=== PATIENT | male | born 1960 | race African-American/Black ===

== ENCOUNTER 2017-07-05 04:58 | Inpatient (IN) | payer OTHER ==
[2017-07-05] VITALS (14 sets, daily range): BP systolic 118–169; BP diastolic 81–98
[~2017-07-05] VITALS: Ht 182.9 cm; Wt 81.6 kg
[2017-07-05] MEDS ORDERED: NORCO 10-325 T1 EACH ORAL (05:56)
[2017-07-05] MEDS ORDERED: Thrombin 5000 units TOPIC ONE (06:21)
[2017-07-05] MEDS ORDERED: Bacitracin 50000 Units Vial ONE ×2 (06:22→11:08)
[2017-07-05] MEDS ORDERED: Vancomycin 1gm inj IVPB ONE (06:22)
[2017-07-05] MEDS ORDERED: Bupivacaine w/Epi 0.75% 30ml Vial INJ ONE (06:22)
[2017-07-05] MEDS ORDERED: Gelfoam Absorbable 1gm powder pkt TOPIC ONE (06:22)
[2017-07-05] MEDS ORDERED: Thrombin 5000 units spray kit TOPIC ONE (06:22)
[2017-07-05] MEDS ORDERED: LR 1000ml 1,000 ML IVLG SCH (06:23)
[2017-07-05] MEDS ORDERED: fentaNYL 100 mcg/2 mL IV PRN (06:30)
[2017-07-05] MEDS ORDERED: DiphenhydrAMINE 50mg/ml Inj IVP PRN ×2 (06:30→11:00)
[2017-07-05] MEDS ORDERED: Atropine Inj 1mg/10ml Syr IV PRN (06:30)
[2017-07-05] MEDS ORDERED: Metoclopramide 10mg/2ml Inj IVP PRN (06:30)
[2017-07-05] MEDS ORDERED: Hydromorphone 0.5mg/0.5ml inj IVP PRN (06:30)
[2017-07-05] MEDS ORDERED: Midazolam 2mg/2ml Inj IVP PRN (06:30)
[2017-07-05] MEDS ORDERED: oxyCODONE HCL/Acetaminophen 5/325mg ORAL PRN (06:30)
[2017-07-05] MEDS ORDERED: Ketorolac 30mg Inj IV PRN (06:30)
[2017-07-05] MEDS ORDERED: Norco 7.5mg/325mg tab ORAL PRN (06:30)
[2017-07-05] MEDS ORDERED: Norco 5mg/325mg tab ORAL PRN (06:30)
[2017-07-05] MEDS ORDERED: Ketorolac 60mg Inj IV PRN (06:30)
[2017-07-05] MEDS ORDERED: LORazepam Inj 2mg/ml 1ml IV PRN (06:30)
[2017-07-05] MEDS ORDERED: LR 1000ml ONE (07:00)
[2017-07-05] MEDS ORDERED: Dexamethasone 4mg/ml vial ONE (07:00)
[2017-07-05] MEDS ORDERED: Metoclopramide 10mg/2ml Inj ONE (07:00)
[2017-07-05] MEDS ORDERED: fentaNYL 100 mcg/2 mL IV ONE (07:00)
[2017-07-05] MEDS ORDERED: Lidocaine 1% MPF 10mg/ml 5ml ONE (07:00)
[2017-07-05] MEDS ORDERED: Sodium Chloride 10ml vial INJ ONE (07:00)
[2017-07-05] MEDS ORDERED: Sterile Water Irrig 1000ml IRRIG ONE (07:00)
[2017-07-05] MEDS ORDERED: Zemuron 50mg/5ml Inj IV ONE (07:00)
[2017-07-05] MEDS ORDERED: Glycopyrrolate 0.2mg/ml 1ml Vial ONE (07:00)
[2017-07-05] MEDS ORDERED: Lidocaine 1% Plain 30 ml INJ ONE (07:00)
[2017-07-05] MEDS ORDERED: Propofol 1,000mg/ 100ml btl IV ONE (07:00)
[2017-07-05] MEDS ORDERED: NS Irrig 1000ml ONE (07:00)
[2017-07-05] MEDS ORDERED: Neostigmine 1mg/ml 10ml Inj ONE (07:00)
--- NOTE | 2017-07-05 07:00 | Anethesia Preoperative Eval ---
Anesthesia Pre-op PMH/ROS General Date of Evaluation: Jul 05, 2017 Time of Evaluation: 07:01 Anesthesiologist: Kitty ASA Score: ASA 2 Mallampati Score Class I : Soft palate, uvula, fauces, pillars visible Class II: Soft palate, uvula, fauces visible Class III: Soft palate, base of uvula visible Class IV: Only hard plate visible Mallampati Classification: Class II Surgeon: Mark Diagnosis: Back Pain Surgical Procedure: ALIF L3-4, L4-5, L5-S1 Anesthesia History: none Family History: no anesthesia problems Allergies: Coded Allergies: No Known Allergies (Unverified , 07/05/17) Medications: see eMAR Past Medical History Cardiovascular: Reports: HTN PSxH Narrative: Kobi Shoulder SX, Cervical SX, L Knee SX Anesthesia Pre-op Phys. Exam Physician Exam Last Vital Signs Date Time Temp Pulse Resp B/P (MAP) Pulse Ox O2 Delivery O2 Flow Rate FiO2 07/05/17 06:16 98.0 51 18 118/85 100 Room Air Constitutional: NAD Neurologic: CN 2-12 intact Cardiovascular: RRR Respiratory: CTA Gastrointestinal: S/NT/ND Airway Exam Mallampati Score: Class II MO: full ROM: limited Teeth: missing, intact Anesthesia Pre-op A/P Risk Assessment & Plan Assessment: ASA 2 Plan: GA, BIS, Glidescope Status Change Before Surgery: No Pre-Antibiotics Dru Grams Ancef IV Given Within 1 Hr of Incision: Yes Time Given: 07:26 Alvarez Tang MD Jul 05, 2017 07:00
--- NOTE | 2017-07-05 07:02 | Immediate Post-Op Evaluation ---
Immediate Post-Op Evalulation Immediate Post-Op Evalulation Procedure: ALIF Date of Evaluation: Jul 05, 2017 Time of Evaluation: 10:53 IV Fluids: 900 LR Blood Products: 0 Estimated Blood Loss: 90 Urinary Output: 300 Blood Pressure Systolic: 168 Blood Pressure Diastolic: 98 Pulse Rate: 82 Respiratory Rate: 16 O2 Sat by Pulse Oximetry: 98 Temperature (Fahrenheit): 98 Pain Score (1-10): 3 Nausea: No Vomiting: No Complications 0 Patient Status: awake, reacts, patent, extubated, none Hydration Status: adequate Dru Grams Ancef IV Given Within 1 Hr of Incision: Yes Time Given: 07:26 Alvarez Tang MD Jul 05, 2017 07:02
--- NOTE | 2017-07-05 07:16 | Pre-Procedure Note/Attestation ---
Pre-Procedure Note/Attestation Complete Prior to Procedure Planned Procedure: not applicable Procedure Narrative: For Anterior decompression and stabelization L3-4, L4-5 and L5/S1 Indications for Procedure Pre-Operative Diagnosis: Instability and disc herniation L3-4, L4-5 & L5/S1 Attestation I attest that I discussed the nature of the procedure; its benefits; risks and complications; and alternatives (and the risks and benefits of such alternatives ), prior to the procedure, with the patient (or the patient's legal industrial sales representative). I attest that, if there was a reasonable possibility of needing a blood transfusion, the patient (or the patient's legal industrial sales representative) was given the [place] Department [facility] Services standardized written summary, pursuant to the Sundar Jose Martin Blood Safety Act ([place] Health and Safety Code # 1645, as amended). I attest that I re-evaluated the patient just prior to the surgery and that there has been no change in the patient's H&P, except as documented below: DANETTE ACOSTA Jul 05, 2017 07:16
--- NOTE | 2017-07-05 07:16 | Pre-Procedure Note/Attestation ---
Pre-Procedure Note/Attestation Complete Prior to Procedure Planned Procedure: not applicable Procedure Narrative: For Anterior decompression and stabelization L3-4, L4-5 and L5/S1 Indications for Procedure Pre-Operative Diagnosis: Instability and disc herniation L3-4, L4-5 & L5/S1 Attestation I attest that I discussed the nature of the procedure; its benefits; risks and complications; and alternatives (and the risks and benefits of such alternatives ), prior to the procedure, with the patient (or the patient's legal pharmaceutical sales representative). I attest that, if there was a reasonable possibility of needing a blood transfusion, the patient (or the patient's legal pharmaceutical sales representative) was given the [place] [facility] Services standardized written summary, pursuant to the Sundar Jose Martin Blood Safety Act ([place] Health and Safety Code # 1645, as amended). I attest that I re-evaluated the patient just prior to the surgery and that there has been no change in the patient's H&P, except as documented below: DANETTE ACOSTA Jul 05, 2017 07:16
--- NOTE | 2017-07-05 07:16 | Pre-Procedure Note/Attestation ---
Pre-Procedure Note/Attestation Complete Prior to Procedure Planned Procedure: not applicable Procedure Narrative: For Anterior decompression and stabelization L3-4, L4-5 and L5/S1 Indications for Procedure Pre-Operative Diagnosis: Instability and disc herniation L3-4, L4-5 & L5/S1 Attestation I attest that I discussed the nature of the procedure; its benefits; risks and complications; and alternatives (and the risks and benefits of such alternatives ), prior to the procedure, with the patient (or the patient's legal accounts payable representative). I attest that, if there was a reasonable possibility of needing a blood transfusion, the patient (or the patient's legal accounts payable representative) was given the [place] Department [facility] Services standardized written summary, pursuant to the Sundar Jose Martin Blood Safety Act ([place] Health and Safety Code # 1645, as amended). I attest that I re-evaluated the patient just prior to the surgery and that there has been no change in the patient's H&P, except as documented below: DANETTE ACOSTA Jul 05, 2017 07:16
[2017-07-05] MEDS ORDERED: Acetaminophen (Non formulary) 100 ML IV ONE (07:30)
[2017-07-05] MEDS ORDERED: Heparin 5000 units/ml inj ONE (07:52)
[2017-07-05] MEDS ORDERED: Ropivacaine 5mg/ml Vial 30ml INJ ONE (10:14)
--- NOTE | 2017-07-05 10:43 | Operative Note - PDOC ---
Operative Note Operative Note Chief Complaint: Low Back Pain and leg weakness Pre-op Diagnosis: Instability and disc herniation L3-4, L4-5 & L5/S1 Procedure: Anterior Lumbar Decompression and stabelization with InFis devices Operative Findings: consistent w/pre-op dx studies Surgeon: Mark Fretted Instruments Inspector: DANIEL Doherty Additional Surgeons: Scott - Vascular Access Anesthesiologist: Vito Vines Anesthesia: general Specimen: yes Complications: none Condition: stable Estimated Blood Loss: volume Implant(s) used?: Yes - Jinny InFix (X3), DANETTE Reza Jul 05, 2017 10:43
[2017-07-05] MEDS ORDERED: Naloxone 0.4mg/ml Inj IVP PRN (11:00)
[2017-07-05] MEDS ORDERED: Rate Change PCA 1 Each MISC PRN (11:00)
[2017-07-05] MEDS ORDERED: LORazepam 1mg tab ORAL PRN (11:00)
[2017-07-05] MEDS: PCA HYDROmorphone 1mg/ml 30 ML IV PRN (11:28)
--- NOTE | 2017-07-05 12:27 | Diagnostic Imaging Report ---
Indication: PAIN intraoperative, pain right hip and right leg Technique: Intraoperative images Comparison: None Findings: Localizer images demonstrate surgical tool projected anterior to what is presumably the L5-S1 disc. Subsequent images document placement of disc prostheses at L3-4, L4-5, and L5-S1. Impression: Intraoperative imaging, as described
[2017-07-05] MEDS ORDERED: Acetaminophen 650 MG SUPP RECTAL PRN (13:30)
[2017-07-05] MEDS ORDERED: PCA Education Pamphlet MISC ONE (14:30)
[2017-07-05] MEDS: ceFAZolin sod 1 GM in D5W 55 ML IV SCH ×2 (14:43→23:30)
--- NOTE | 2017-07-05 18:00 | Operative Note - Dictated ---
DATE OF OPERATION: 07/05/2017 FACILITY: [facility]. SURGEON: Billy Flores M.D. CO-SURGEON [address] MAGISTRATE FOR APPROACH: Dr. Scott for vascular mobilization. [facility]USTRI[address] [facility] MAGISTRATE: MIKE Jane. ANESTHESIOLOGIST: Dr. Tang. General endotracheal with arterial blood pressure monitoring. 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 The patient had significant stenosis at the L4-L5 level with moderate compression on the sac and exiting nerve roots and notable 5 to 6 mm bulge with annular tear and hypertrophic facets. There was also a significant disk bulge centrally at L3-L4 with disk degeneration at L5-S1. The patient had a severely collapse level with only about 3 mm of disk space height, remaining a large circumferential osteophytes causing obstruction in the canal in both the right and left foramen. 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 The patient had significant stenosis at the L4-L5 level with moderate compression on the sac and exiting nerve roots and notable 5 to 6 mm bulge with annular tear and hypertrophic facets. There was also a significant disk bulge centrally at L3-L4 with disk degeneration at L5-S1. The patient had a severely collapse level with only about 3 mm of disk space height, remaining a large circumferential osteophytes causing obstruction in the canal in both the right and left foramen. OPERATIVE PROCEDURE: Left pararectus retroperitoneal approach to the anterior lumbar spine between L3 and L5. The vessels both the vena cava and the aorta were mobilized and retracted by Dr. Scott in two stages to permit anterior access to the disk anulus at L5-S1 and at L3-L4 and L4-L5. DESCRIPTION OF PROCEDURE: The patient was prepped and draped supine after induction of satisfactory general anesthesia, a left pararectus incision was made by Dr. Scott. The lumbosacral space was initially approached and retractors were inserted. The vena cava and aorta were cleared below the bifurcation. Middle sacral was cleared and the front of the disk space at L5-S1 was identified. Spine needle was placed and image intensifier was used to confirm placement of the needle. The anterior annulotomy was then done with a 10 blade and the cartilaginous endplate and soft disk substance was then sequentially removed from front to back using Kerrison's, curettes, and pituitaries both straight and angle graduated from larger to smaller. A removable lordotic distraction plug was utilized from side to side beginning at 8 mm and progressing to 12 to open the anterior aspect of the disk and allow progressively more dissection to the posterior canal, posterior osteophytes and the right and left foramen. Osteophytes were removed from the foramina. A wide foraminotomy was accomplished. Also osteophytes were removed from the posterior aspect of the body of L5 and S1 facing the canal. Height of the disk was reconstituted to 8 mm with good tension on the lateral anulus lateral muscle and ligament stabilizers. An 8 mm infix cage was inserted with 3+ 3 degrees of lordosis in each endplate on a large platform to create normal height of the lumbosacral disk normal lordosis and to clear the canal and the bilateral right and left foramina. In surgery x-rays revealed that the cage was well positioned centrally and that there was good disk height and lordosis. The dissection by Dr. Scott was then carried more proximally and the L3-L4 and L4-L5 disks were cleared centrally by retracting the aorta and vena cava to the side. The center of the disk were marked and then an anterior annulotomy was done first at L4-L5 and then at L3-L4. A 10-blade was used, the cartilaginous endplate and soft disk substance was then sequentially removed from front to back using detachable lordotic distractors. The dissection was carried to the back of the disk with the PLL and posterior disk remnant was completely removed. A bilateral foraminotomy was accomplished, both right and left and the remnants of the disk and lateral stabilizers were stretched to 12 mm with template reproducing an increase in height stabilizing the L4-L5 level and opening the foramen posteriorly. A 12 mm implant was chosen with a large foot plate. It was tapped into place, checked, and side struts were then inserted and cold welded. The L3-L4 level was then done similarly using anterior annulotomy progressing from front to back with removal of the cartilaginous endplate, nuclear disk, then clearance to the PLL and posterior disk anulus and also a wide foraminotomy at the right and left foramina L3-L4. The space at L3-L4 was not as wide as at L4-L5 and therefore a medium foot plate was chosen, it was centered between the pedicles and templated out to 12 mm in height. A 3+3 degrees of lordosis was added at the L3-L4 level and two endplates were tapped into place. Then the side supports were inserted and the position was checked. Cold welding was done and the space between endplates at L3-L4 and L4-L5 was filled with autogenous bone that had been harvested during the procedure as well as bone morphogenic protein. There was no significant bleeding. Bleeding was less than 100 mL. The wound was closed carefully in layers including the anterior and posterior rectus sheath. The subcutaneous and skin final x-rays revealed that all 3 levels the cage was well centered between the pedicles on AP had good social insurance adviser on the endplate, good reconstitution of disk height. No lordosis was noted on the postoperative films. Pulse oximetry was maintained throughout the case. The patient was placed in a bulky compression dressing, returned to recovery room in good condition. Billy Flores M.D. DR: MEHRNA JOB#: [id number] CC:
--- NOTE | 2017-07-05 18:00 | Operative Note - Dictated ---
DATE OF OPERATION: 07/05/2017 FACILITY: [facility]. SURGEON: Billy Flores M.D. CO-SURGEON FARE COLLECTOR FOR APPROACH: Dr. Scott for vascular mobilization. FARE COLLECTOR: MIKE Jaen. ANESTHESIOLOGIST: Dr. Tang. General endotracheal with arterial blood pressure monitoring. 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 The patient had significant stenosis at the L4-L5 level with moderate compression on the sac and exiting nerve roots and notable 5 to 6 mm bulge with annular tear and hypertrophic facets. There was also a significant disk bulge centrally at L3-L4 with disk degeneration at L5-S1. The patient had a severely collapse level with only about 3 mm of disk space height, remaining a large circumferential osteophytes causing obstruction in the canal in both the right and left foramen. 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 The patient had significant stenosis at the L4-L5 level with moderate compression on the sac and exiting nerve roots and notable 5 to 6 mm bulge with annular tear and hypertrophic facets. There was also a significant disk bulge centrally at L3-L4 with disk degeneration at L5-S1. The patient had a severely collapse level with only about 3 mm of disk space height, remaining a large circumferential osteophytes causing obstruction in the canal in both the right and left foramen. OPERATIVE PROCEDURE: Left pararectus retroperitoneal approach to the anterior lumbar spine between L3 and L5. The vessels both the vena cava and the aorta were mobilized and retracted by Dr. Scott in two stages to permit anterior access to the disk anulus at L5-S1 and at L3-L4 and L4-L5. DESCRIPTION OF PROCEDURE: The patient was prepped and draped supine after induction of satisfactory general anesthesia, a left pararectus incision was made by Dr. Scott. The lumbosacral space was initially approached and retractors were inserted. The vena cava and aorta were cleared below the bifurcation. Middle sacral was cleared and the front of the disk space at L5-S1 was identified. Spine needle was placed and image intensifier was used to confirm placement of the needle. The anterior annulotomy was then done with a 10 blade and the cartilaginous endplate and soft disk substance was then sequentially removed from front to back using Kerrison's, curettes, and pituitaries both straight and angle graduated from larger to smaller. A removable lordotic distraction plug was utilized from side to side beginning at 8 mm and progressing to 12 to open the anterior aspect of the disk and allow progressively more dissection to the posterior canal, posterior osteophytes and the right and left foramen. Osteophytes were removed from the foramina. A wide foraminotomy was accomplished. Also osteophytes were removed from the posterior aspect of the body of L5 and S1 facing the canal. Height of the disk was reconstituted to 8 mm with good tension on the lateral anulus lateral muscle and ligament stabilizers. An 8 mm infix cage was inserted with 3+ 3 degrees of lordosis in each endplate on a large platform to create normal height of the lumbosacral disk normal lordosis and to clear the canal and the bilateral right and left foramina. In surgery x-rays revealed that the cage was well positioned centrally and that there was good disk height and lordosis. The dissection by Dr. Scott was then carried more proximally and the L3-L4 and L4-L5 disks were cleared centrally by retracting the aorta and vena cava to the side. The center of the disk were marked and then an anterior annulotomy was done first at L4-L5 and then at L3-L4. A 10-blade was used, the cartilaginous endplate and soft disk substance was then sequentially removed from front to back using detachable lordotic distractors. The dissection was carried to the back of the disk with the PLL and posterior disk remnant was completely removed. A bilateral foraminotomy was accomplished, both right and left and the remnants of the disk and lateral stabilizers were stretched to 12 mm with template reproducing an increase in height stabilizing the L4-L5 level and opening the foramen posteriorly. A 12 mm implant was chosen with a large foot plate. It was tapped into place, checked, and side struts were then inserted and cold welded. The L3-L4 level was then done similarly using anterior annulotomy progressing from front to back with removal of the cartilaginous endplate, nuclear disk, then clearance to the PLL and posterior disk anulus and also a wide foraminotomy at the right and left foramina L3-L4. The space at L3-L4 was not as wide as at L4-L5 and therefore a medium foot plate was chosen, it was centered between the pedicles and templated out to 12 mm in height. A 3+3 degrees of lordosis was added at the L3-L4 level and two endplates were tapped into place. Then the side supports were inserted and the position was checked. Cold welding was done and the space between endplates at L3-L4 and L4-L5 was filled with autogenous bone that had been harvested during the procedure as well as bone morphogenic protein. There was no significant bleeding. Bleeding was less than 100 mL. The wound was closed carefully in layers including the anterior and posterior rectus sheath. The subcutaneous and skin final x-rays revealed that all 3 levels the cage was well centered between the pedicles on AP had good mill house supervisor on the endplate, good reconstitution of disk height. No lordosis was noted on the postoperative films. Pulse oximetry was maintained throughout the case. The patient was placed in a bulky compression dressing, returned to recovery room in good condition. Billy Flores M.D. DR: MEHRAN JOB#: [id number] CC:
--- NOTE | 2017-07-05 18:15 | Operative Note - Dictated ---
DATE OF OPERATION: 07/05/2017 VASCULAR SURGEON: Mak Scott M.D. SPINE SURGEON: Billy Flores M.D. PREOPERATIVE DIAGNOSIS: Degenerative disc disease. POSTOPERATIVE DIAGNOSIS: Degenerative disc disease. PROCEDURE PERFORMED: 1. Anterior retroperitoneal exposure of L3-4 vertebral interspace. 2. Anterior retroperitoneal exposure of L4-5 vertebral interspace. 3. Anterior retroperitoneal exposure L5-S1 vertebral interspace. INDICATIONS: The patient is a very pleasant gentleman, who was seen in my office prior to surgery and was scheduled for anterior fusion at L3 through S1. He had no prior history of anterior spine surgery. No prior history of deep venous thrombosis or any bleeding complications was described. He has been made aware of the need for a large vertical midline incision, the possibility of vascular injury, possible need for blood transfusion, and deep venous thrombosis were explicitly discussed. He understands these risks and does wish to proceed with the surgery. DESCRIPTION OF FINDINGS: A vertical midline incision was used in extension just to the left side of the umbilicus. A left retroperitoneal approach was used. There was no peritoneal or ureteral violation. There was no vascular injury. Exposure of L5-S1 was obtained below the iliac bifurcation and exposure of L3-4 and L4-5 was obtained above the iliac bifurcation with retraction at the left iliac vessels and aorta towards the patient's right. Upon completion, the peritoneum and ureter were intact. The iliac vessels were intact. There were palpable femoral pedal pulses, and blood loss was less than 100 mL. DESCRIPTION OF PROCEDURE: The patient was taken to the operating room, general anesthesia was used. IV antibiotics were given. The patient's abdomen was prepped and draped. Appropriate time-out of procedures were taken. A vertical midline incision was made infraumbilically with extension just to the left side of the umbilicus. The anterior fascia was incised longitudinally in the midline. A plane identified posterior to the left rectus abdominis developed posterolaterally towards the patient's left. Retroperitoneal space entered below the arcuate line. The peritoneum and ureter were mobilized towards the patient's right exposing the left common iliac artery and vein. Dissection was carried on undersurface of left common iliac vein. The middle sacral artery and vein were ligated with vascular clips and divided, and this allowed us to retract the left iliac vessels superiorly and laterally exposing the anterior surface of the L5 and S1. The Omni retractor was set in place with Monzon blades placed laterally and then fluoroscopy was used to confirm the appropriate level. Instrumentation was performed at L5-S1, dictated separately. Retractor was then repositioned below the iliac bifurcation. Overlying lymphatics were carefully identified. They were ligated with vascular clips and divided and this allowed us to then mobilize the left iliac vessels towards the patient's right. The iliolumbar vein was identified, encircled using a 2-0 silk tie, and triply ligated proximally and distally. The L4 segmental artery and vein as well as large L3 segmental artery and vein were all identified, ligated with vascular clips, and divided and this allowed us to then carefully mobilize the left iliac vessels towards the patient's right and placed the Omni retractor. Monzon blades were placed laterally to ensure exposure of L4-5 and L3-4 simultaneously and the fluoroscopy used to confirm the appropriate level. Instrumentation was performed at L3-4 and L4-5, dictated separately. On completion, the peritoneum and ureter were intact. Iliac vessels were intact. Anterior fascia was then closed using #1 PDS in a running fashion, and the skin and subcutaneous tissue were closed with 3-0 Vicryl and 4-0 Monocryl in a running subcuticular closure technique. ESTIMATED BLOOD LOSS: Less than 100 mL. COMPLICATIONS: None. Mak Scott M.D. DR: KUSHAL JOB#: [id number] CC:
[2017-07-05] MEDS: PCA shift volume MISC SCH (19:00)
[2017-07-06 00:19] VITALS: BP 149/81
[2017-07-06 04:00] VITALS: BP_SYST 144; BP_SYST 151; BP_DIAS 73; BP_DIAS 82
[2017-07-06] MEDS: PCA shift volume MISC SCH ×2 (07:25→19:25)
[2017-07-06 08:00] VITALS: BP 142/74
[2017-07-06] MEDS: ceFAZolin sod 1 GM in D5W 55 ML IV SCH (08:24)
--- NOTE | 2017-07-06 11:27 | 48 Hour Post Anesthesia Eval ---
Post Anesthesia Evaluation Procedure: ALIF Date of Evaluation: Jul 06, 2017 Time of Evaluation: 13:10 Blood Pressure Systolic: 142 0: 74 Pulse Rate: 68 Respiratory Rate: 18 Temperature (Fahrenheit): 98.1 O2 Sat by Pulse Oximetry: 99 Airway: patent Nausea: No Vomiting: No Pain Intensity: 6 If pain is > 6 Comment: Patient refusing to use DOLL WIG MAKER despite encouragement to treat pain Hydration Status: adequate Cardiopulmonary Status: Stable Mental Status/LOC: patient returned to baseline Follow-up Care/Observations: As per surgery Post-Anesthesia Complications: No anesthetic complication Follow-up care needed: N/A LIVIA TURNER M.D. Jul 06, 2017 11:27
--- NOTE | 2017-07-06 11:27 | 48 Hour Post Anesthesia Eval ---
Post Anesthesia Evaluation Procedure: ALIF Date of Evaluation: Jul 06, 2017 Time of Evaluation: 13:10 Blood Pressure Systolic: 142 0: 74 Pulse Rate: 68 Respiratory Rate: 18 Temperature (Fahrenheit): 98.1 O2 Sat by Pulse Oximetry: 99 Airway: patent Nausea: No Vomiting: No Pain Intensity: 6 If pain is > 6 Comment: Patient refusing to use TANK TENDER despite encouragement to treat pain Hydration Status: adequate Cardiopulmonary Status: Stable Mental Status/LOC: patient returned to baseline Follow-up Care/Observations: As per surgery Post-Anesthesia Complications: No anesthetic complication Follow-up care needed: N/A LIVIA TURNER M.D. Jul 06, 2017 11:27
--- NOTE | 2017-07-06 11:27 | 48 Hour Post Anesthesia Eval ---
Post Anesthesia Evaluation Procedure: ALIF Date of Evaluation: Jul 06, 2017 Time of Evaluation: 13:10 Blood Pressure Systolic: 142 0: 74 Pulse Rate: 68 Respiratory Rate: 18 Temperature (Fahrenheit): 98.1 O2 Sat by Pulse Oximetry: 99 Airway: patent Nausea: No Vomiting: No Pain Intensity: 6 If pain is > 6 Comment: Patient refusing to use CAMP BOSS despite encouragement to treat pain Hydration Status: adequate Cardiopulmonary Status: Stable Mental Status/LOC: patient returned to baseline Follow-up Care/Observations: As per surgery Post-Anesthesia Complications: No anesthetic complication Follow-up care needed: N/A LIVIA TURNER M.D. Jul 06, 2017 11:27
[2017-07-06 11:48] VITALS: BP 145/79
[2017-07-06] MEDS: PCA HYDROmorphone 1mg/ml 30 ML IV PRN (12:55)
[2017-07-06 16:00] VITALS: BP 138/79
--- NOTE | 2017-07-06 17:23 | General Progress Note ---
Assessment/Plan Assessment/Plan Instability and disc herniation L3-4, L4-5 & L5/S1 Anterior Lumbar Decompression and stabelization with InFis devices PLAN 1. incentive spirometry 2. SCD 3. PT evaluation and therapy 4. Hydration and advance diet as tolerated 5. Pain management 6. discharge once stable with outpatient follow up Subjective Date patient seen: Jul 05, 2017 Allergies: Coded Allergies: No Known Allergies (Unverified , 07/05/17) Subjective post op care noted Objective Last 24 Hour Vital Signs Date Time Temp Pulse Resp B/P (MAP) Pulse Ox O2 Delivery O2 Flow Rate FiO2 07/05/17 20:11 98.5 60 18 150/88 100 Nasal Cannula 3.0 07/05/17 20:00 18 Height (Feet): 6 Height (Inches): 0.00 Weight (Pounds): 180 Objective WDWN NAD clear breath sounds bilaterally without rhonchi or wheeze [id number] without MRG no HSM no CCE nonfocal MANDY CABRERA Jul 06, 2017 17:23
--- NOTE | 2017-07-06 17:23 | General Progress Note ---
Assessment/Plan Assessment/Plan Instability and disc herniation L3-4, L4-5 & L5/S1 Anterior Lumbar Decompression and stabelization with InFis devices PLAN 1. incentive spirometry 2. SCD 3. PT evaluation and therapy 4. Hydration and advance diet as tolerated 5. Pain management 6. discharge once stable with outpatient follow up Subjective Date patient seen: Jul 05, 2017 Allergies: Coded Allergies: No Known Allergies (Unverified , 07/05/17) Subjective post op care noted Objective Last 24 Hour Vital Signs Date Time Temp Pulse Resp B/P (MAP) Pulse Ox O2 Delivery O2 Flow Rate FiO2 07/05/17 20:11 98.5 60 18 150/88 100 Nasal Cannula 3.0 07/05/17 20:00 18 Height (Feet): 6 Height (Inches): 0.00 Weight (Pounds): 180 Objective WDWN NAD clear breath sounds bilaterally without rhonchi or wheeze [id number] without MRG no HSM no CCE nonfocal MANDY CABRERA Jul 06, 2017 17:23
--- NOTE | 2017-07-06 17:23 | General Progress Note ---
Assessment/Plan Assessment/Plan Instability and disc herniation L3-4, L4-5 & L5/S1 Anterior Lumbar Decompression and stabelization with InFis devices PLAN 1. incentive spirometry 2. SCD 3. PT evaluation and therapy 4. Hydration and advance diet as tolerated 5. Pain management 6. discharge once stable with outpatient follow up Subjective Date patient seen: Jul 05, 2017 Allergies: Coded Allergies: No Known Allergies (Unverified , 07/05/17) Subjective post op care noted Objective Last 24 Hour Vital Signs Date Time Temp Pulse Resp B/P (MAP) Pulse Ox O2 Delivery O2 Flow Rate FiO2 07/05/17 20:11 98.5 60 18 150/88 100 Nasal Cannula 3.0 07/05/17 20:00 18 Height (Feet): 6 Height (Inches): 0.00 Weight (Pounds): 180 Objective WDWN NAD clear breath sounds bilaterally without rhonchi or wheeze [id number] without MRG no HSM no CCE nonfocal MANDY CABRERA Jul 06, 2017 17:23
--- NOTE | 2017-07-06 17:24 | General Progress Note ---
Assessment/Plan Assessment/Plan Instability and disc herniation L3-4, L4-5 & L5/S1 Anterior Lumbar Decompression and stabelization with InFis devices PLAN 1. incentive spirometry 2. SCD 3. PT evaluation and therapy 4. Hydration and advance diet as tolerated 5. Pain management 6. discharge once stable with outpatient follow up Subjective Allergies: Coded Allergies: No Known Allergies (Unverified , 07/05/17) Subjective post op care noted Objective Last 24 Hour Vital Signs Date Time Temp Pulse Resp B/P (MAP) Pulse Ox O2 Delivery O2 Flow Rate FiO2 07/06/17 16:00 18 07/06/17 16:00 99.8 75 18 138/79 98 Room Air 07/06/17 13:25 98.7 07/06/17 12:30 18 07/06/17 12:00 18 07/06/17 11:48 98.7 73 18 145/79 99 Nasal Cannula 3.0 07/06/17 11:27 68 18 99 07/06/17 08:00 98.1 68 18 142/74 99 Nasal Cannula 3.0 07/06/17 08:00 18 07/06/17 04:00 17 07/06/17 04:00 98.0 64 18 144/73 96 Nasal Cannula 3.0 07/06/17 00:19 97.7 60 18 149/81 97 Nasal Cannula 3.0 07/06/17 00:00 18 07/05/17 20:11 98.5 60 18 150/88 100 Nasal Cannula 3.0 07/05/17 20:00 18 Intake and Output 07/06/17 07/07/17 19:00 07:00 Intake Total 705 ml Output Total 500 ml Balance 205 ml Intake IV Total 705 ml Output Urine Total 500 ml Height (Feet): 6 Height (Inches): 0.00 Weight (Pounds): 180 Objective WDWN NAD clear breath sounds bilaterally without rhonchi or wheeze [id number] without MRG no HSM no CCE nonfocal MANDY CABRERA Jul 06, 2017 17:24
[2017-07-06 20:22] VITALS: BP 139/72
[2017-07-07 00:20] VITALS: BP 135/69
[2017-07-07 04:31] VITALS: BP 123/58
[2017-07-07] MEDS: PCA shift volume MISC SCH (07:26)
[2017-07-07 08:00] VITALS: BP 124/72
[2017-07-07] MEDS ORDERED: HYDROmorphone 1mg/ml Carpuject SUBQ PRN (11:00)
[2017-07-07] MEDS ORDERED: Norco 5mg/325mg tab ORAL PRN (11:00)
[2017-07-07] MEDS ORDERED: Naloxone 0.4mg/ml Inj IVP PRN (11:00)
[2017-07-07] MEDS ORDERED: HYDROmorphone 1mg/ml Carpuject IVP PRN (11:00)
[2017-07-07] MEDS ORDERED: Norco 7.5mg/325mg tab ORAL PRN (11:00)
[2017-07-07 12:00] VITALS: BP 119/72
--- NOTE | 2017-07-07 12:42 | General Surgery Progress Note ---
General Surgery-Progress Note Subjective Procedure Performed Anterior Lumbar Decompression and stabelization with InFis devices Symptoms: improved Objective Last 24 Hour Vital Signs Date Time Temp Pulse Resp B/P (MAP) Pulse Ox O2 Delivery O2 Flow Rate FiO2 07/07/17 12:00 98.9 78 18 119/72 100 Room Air 07/07/17 10:59 18 07/07/17 08:00 18 07/07/17 08:00 98.7 79 19 124/72 98 Room Air 07/07/17 04:31 98.8 89 20 123/58 98 Room Air 07/07/17 04:00 18 07/07/17 00:20 98.9 87 19 135/69 99 Room Air 07/07/17 00:00 18 07/06/17 20:22 99.6 94 20 139/72 100 Room Air 07/06/17 20:00 18 07/06/17 16:00 18 07/06/17 16:00 99.8 75 18 138/79 98 Room Air 07/06/17 13:25 98.7 Dressing: dry Wound: clean Drains: none Additional Comments Patient reports improvement in feeling and strength in both legs. No lower GI bowel activity. PT / OT working with patient. DANETTE Camacho Jul 07, 2017 12:42
--- NOTE | 2017-07-07 13:01 | General Progress Note ---
Assessment/Plan Assessment/Plan Instability and disc herniation L3-4, L4-5 & L5/S1 Anterior Lumbar Decompression and stabelization with InFis devices PLAN 1. incentive spirometry 2. SCD 3. PT evaluation and therapy 4. Hydration and advance diet as tolerated once bowel sounds and flatus present 5. Pain management 6. discharge once stable with outpatient follow up Subjective Allergies: Coded Allergies: No Known Allergies (Unverified , 07/05/17) Subjective post op care noted still with poor BS Objective Last 24 Hour Vital Signs Date Time Temp Pulse Resp B/P (MAP) Pulse Ox O2 Delivery O2 Flow Rate FiO2 07/07/17 12:00 98.9 78 18 119/72 100 Room Air 07/07/17 10:59 18 07/07/17 08:00 18 07/07/17 08:00 98.7 79 19 124/72 98 Room Air 07/07/17 04:31 98.8 89 20 123/58 98 Room Air 07/07/17 04:00 18 07/07/17 00:20 98.9 87 19 135/69 99 Room Air 07/07/17 00:00 18 07/06/17 20:22 99.6 94 20 139/72 100 Room Air 07/06/17 20:00 18 07/06/17 16:00 18 07/06/17 16:00 99.8 75 18 138/79 98 Room Air 07/06/17 13:25 98.7 Height (Feet): 6 Height (Inches): 0.00 Weight (Pounds): 180 Objective WDWN NAD clear breath sounds bilaterally without rhonchi or wheeze [id number] without MRG no HSM no CCE nonfocal MANDY CABRERA Jul 07, 2017 13:01
[2017-07-07 16:00] VITALS: BP 109/77
[2017-07-07 20:00] VITALS: BP 118/68
[2017-07-08] VITALS: BP 121/73
[2017-07-08 04:00] VITALS: BP 134/84
[2017-07-08] MEDS: Norco 7.5mg/325mg tab ORAL PRN ×2 (04:58→21:30)
[2017-07-08 08:06] VITALS: BP 137/70
--- NOTE | 2017-07-08 08:38 | General Progress Note ---
Assessment/Plan Assessment/Plan Instability and disc herniation L3-4, L4-5 & L5/S1 Anterior Lumbar Decompression and stabelization with InFis devices PLAN 1. incentive spirometry 2. SCD 3. PT evaluation and therapy 4. Hydration and advance diet today as tolerated 5. Pain management 6. discharge hopefully in am Subjective Allergies: Coded Allergies: No Known Allergies (Unverified , 07/05/17) Subjective post op care noted had large BM Objective Last 24 Hour Vital Signs Date Time Temp Pulse Resp B/P (MAP) Pulse Ox O2 Delivery O2 Flow Rate FiO2 07/08/17 08:06 98.8 83 20 137/70 97 Room Air 07/08/17 04:00 98.0 73 18 134/84 99 Room Air 07/08/17 02:02 98.1 07/08/17 02:02 98.1 07/08/17 01:31 101.2 07/08/17 01:00 99.8 07/08/17 00:00 100.9 83 18 121/73 99 Room Air 07/07/17 22:00 98.8 07/07/17 21:00 100.0 07/07/17 20:30 100.2 07/07/17 20:00 100.9 78 18 118/68 99 Room Air 07/07/17 16:00 98.3 88 17 109/77 98 Room Air 07/07/17 12:00 98.9 78 18 119/72 100 Room Air 07/07/17 10:59 18 Height (Feet): 6 Height (Inches): 0.00 Weight (Pounds): 180 Objective WDWN NAD clear breath sounds bilaterally without rhonchi or wheeze [id number] without MRG no HSM; noted bowel sounds no CCE nonfocal MANDY CABRERA Jul 08, 2017 08:38
--- NOTE | 2017-07-08 10:28 | General Surgery Progress Note ---
General Surgery-Progress Note Subjective Procedure Performed Anterior Lumbar Decompression and stabelization with InFis devices Symptoms: improved Objective Last 24 Hour Vital Signs Date Time Temp Pulse Resp B/P (MAP) Pulse Ox O2 Delivery O2 Flow Rate FiO2 07/08/17 08:06 98.8 83 20 137/70 97 Room Air 07/08/17 04:00 98.0 73 18 134/84 99 Room Air 07/08/17 02:02 98.1 07/08/17 02:02 98.1 07/08/17 01:31 101.2 07/08/17 01:00 99.8 07/08/17 00:00 100.9 83 18 121/73 99 Room Air 07/07/17 22:00 98.8 07/07/17 21:00 100.0 07/07/17 20:30 100.2 07/07/17 20:00 100.9 78 18 118/68 99 Room Air 07/07/17 16:00 98.3 88 17 109/77 98 Room Air 07/07/17 12:00 98.9 78 18 119/72 100 Room Air 07/07/17 10:59 18 I&O Intake and Output 07/08/17 07/09/17 19:00 07:00 Output Total 300 ml Balance -300 ml Output Urine Total 300 ml # Voids 1 # Bowel Movements 1 Dressing: dry Wound: clean Drains: none Additional Comments Patient not passing gas thus NPO. Neuro: 5-/5 right leg, 5/5 left leg. Reports both legs improved since surgery. DANETTE Camacho Jul 08, 2017 10:28
[2017-07-08 11:31] VITALS: BP 117/75
[2017-07-08 16:11] VITALS: BP 105/55
[2017-07-08 20:00] VITALS: BP 135/80
[2017-07-09 00:12] VITALS: BP 130/70
[2017-07-09] MEDS: Norco 7.5mg/325mg tab ORAL PRN (03:55)
[2017-07-09 04:21] VITALS: BP 129/73
[2017-07-09 08:00] VITALS: BP 121/70
--- NOTE | 2017-07-09 08:55 | General Progress Note ---
Assessment/Plan Assessment/Plan Instability and disc herniation L3-4, L4-5 & L5/S1 Anterior Lumbar Decompression and stabelization with InFis devices PLAN 1. incentive spirometry 2. SCD 3. PT evaluation and therapy 4. tolerating diet 5. Pain management 6. discharge today Subjective Allergies: Coded Allergies: No Known Allergies (Unverified , 07/05/17) Subjective post op care noted had large BM Objective Last 24 Hour Vital Signs Date Time Temp Pulse Resp B/P (MAP) Pulse Ox O2 Delivery O2 Flow Rate FiO2 07/09/17 08:00 98.9 62 19 121/70 100 Room Air 07/09/17 04:21 98.9 62 18 129/73 100 Room Air 07/09/17 00:12 98.6 70 17 130/70 97 Room Air 07/08/17 20:00 99.9 69 19 135/80 99 Room Air 07/08/17 16:11 99.6 73 20 105/55 98 Room Air 07/08/17 11:31 97.9 84 20 117/75 95 Room Air Height (Feet): 6 Height (Inches): 0.00 Weight (Pounds): 180 Objective WDWN NAD clear breath sounds bilaterally without rhonchi or wheeze [id number] without MRG no HSM; noted bowel sounds no CCE nonfocal MNADY CABRERA Jul 09, 2017 08:55
--- NOTE | 2017-07-09 08:55 | General Progress Note ---
Assessment/Plan Assessment/Plan Instability and disc herniation L3-4, L4-5 & L5/S1 Anterior Lumbar Decompression and stabelization with InFis devices PLAN 1. incentive spirometry 2. SCD 3. PT evaluation and therapy 4. tolerating diet 5. Pain management 6. discharge today Subjective Allergies: Coded Allergies: No Known Allergies (Unverified , 07/05/17) Subjective post op care noted had large BM Objective Last 24 Hour Vital Signs Date Time Temp Pulse Resp B/P (MAP) Pulse Ox O2 Delivery O2 Flow Rate FiO2 07/09/17 08:00 98.9 62 19 121/70 100 Room Air 07/09/17 04:21 98.9 62 18 129/73 100 Room Air 07/09/17 00:12 98.6 70 17 130/70 97 Room Air 07/08/17 20:00 99.9 69 19 135/80 99 Room Air 07/08/17 16:11 99.6 73 20 105/55 98 Room Air 07/08/17 11:31 97.9 84 20 117/75 95 Room Air Height (Feet): 6 Height (Inches): 0.00 Weight (Pounds): 180 Objective WDWN NAD clear breath sounds bilaterally without rhonchi or wheeze [id number] without MRG no HSM; noted bowel sounds no CCE nonfocal MANDY CABRERA Jul 09, 2017 08:55
[2017-07-09 12:00] VITALS: BP 128/82
--- NOTE | 2017-07-12 12:30 | Discharge Summary ---
Discharge Summary Hospital Course Date of Admission Jul 05, 2017 at 04:58 Date of Discharge Jul 09, 2017 at 15:45 Admitting Diagnosis Instability and disc herniation L3-4, L4-5 & L5/S1 Reason for Hospitalization: elective surgery HPI Hansel Mac is a 57 year old male who was admitted on Jul 05, 2017 at 04:58 for low back pain and leg weakness with diagnosis of instability and disc herniation L3-4, L4-5 & L5/S1 . Patient was admitted for elective surgery Consultations dr Estes -IM Procedures s/p by dr Flores on 07/05 Anterior Lumbar Decompression and stabilization with In-Fis devices s/p by dr Scott on 07/05 1. Anterior retroperitoneal exposure of L3-4 vertebral interspace. 2. Anterior retroperitoneal exposure of L4-5 vertebral interspace. 3. Anterior retroperitoneal exposure L5-S1 vertebral interspace. Hospital Course s/p surgery course of recovery uneventful initially IVF and NPO diet slowly started when bowel function returned pain management Neurovascular intact patient reported more strength and sensation in BLE SCD prophylaxis for DVT IS at the bedside and patient was encouraged to use PT eval and Rx when bowel function returned, started diet initially on clear liquids as tolerated and slowly advanced able to tolerate diet ambulated with PT incision clean, dressing C/D/I voiding freely surgeon cleared for dc outpt follow up as recommended by surgeon DISCHARGE DIAGNOSIS Instability and disc herniation L3-4, L4-5 & L5/S1 s/p 07/05 Anterior Lumbar Decompression and stabilization with InFis devices Discharge Condition Upon Discharge: stable Discharge Disposition Patient was discharged to Home (01) Discharge Diagnoses: Discharge Instructions Discharge Instructions Special Instructions I have been assigned to complete a D/C Summary on this account. I was not involved in the patient management Claudette Watson NP ([facility]) Jul 12, 2017 12:30
== END 2017-07-09 15:45 | disposition home or self-care (01) | DRG 460 ==
LOC: SDSOVERFLO 04:58 → 3E 12:20
PROC: 0SB40ZZ Excision of Lumbosacral Disc, Open Approach (ICD-10-PCS; principal; 2017-07-05 07:00)
PROC: 0SB20ZZ Excision of Lumbar Vertebral Disc, Open Approach (ICD-10-PCS; principal; 2017-07-05 07:00)
PROC: 0SG30A0 Fusion of Lumbosacral Joint with Interbody Fusion Device, Anterior Approach, Anterior Column, Open Approach (ICD-10-PCS; principal; 2017-07-05 07:00)
PROC: 0SG10A0 Fusion of 2 or more Lumbar Vertebral Joints with Interbody Fusion Device, Anterior Approach, Anterior Column, Open Approach (ICD-10-PCS; principal; 2017-07-05 07:00)
DX: M51.26 Other intervertebral disc displacement, lumbar region (principal); F17.210 Nicotine dependence, cigarettes, uncomplicated; M51.27 Other intervertebral disc displacement, lumbosacral region; M53.2X6 Spinal instabilities, lumbar region; M53.2X7 Spinal instabilities, lumbosacral region; Z96.611 Presence of right artificial shoulder joint
CPT/HCPCS: 36415; 72020; 76001; 86850; 86900; 86901; 87081; 94003; 94150; J2405; J2710; J2765

== ENCOUNTER 2019-08-21 16:27 | Emergency (ER) | payer OTHER ==
[~2019-08-21] VITALS: Ht 182.9 cm; Wt 83.9 kg
[~2019-08-21 16:27] MED LIST: NORCO 10-325 T1 EACH ORAL
--- NOTE | 2019-08-21 19:02 | Emergency Room Report ---
History of Present Illness General Chief Complaint: Lower Extremity Injury Source: Patient Present Illness HPI 59-year-old male with history of chronic tobacco smoke, right lower extremity DVT x1 year, ambulating to the ER complaining of heaviness and numbness in the left lower extremity. Patient reports the last time that he had the DVT in the right lower extremity he felt very similar to what he is feeling in his left lower extremity today. Denies recent travel, lower extremity surgery, history of cancer. Patient is a heavy tobacco smoker. Reports the last year he had a DVT, was on Coumadin and aspirin however Coumadin was recently stopped by his vascular specialist. Patient also is noncompliant with taking aspirin on daily basis. Patient complains of numbness in the bottom of his left foot that is intermittent. Complains of a 10 out of 10 pain in the left lower extremity. Denies any recent fall or injury. both extremities have 2+ DP pulses, not cool to touch, not erythematous, no calf tenderness noted. Patient denies chest pain , shortness of breath, palpitation, pleuritic chest pain, abdominal pain, nausea vomiting. Has not taken medication for symptom relief. Allergies: Coded Allergies: No Known Allergies (Unverified , 07/05/17) Patient History Past Medical History: see triage record Past Surgical History: other Pertinent Family History: unable to obtain Social History: Reports: smoking - tobacco on daily basis Immunizations: UTD Reviewed Nursing Documentation: PMH: Agreed; PSxH: Agreed Nursing Documentation-PM Past Medical History: No History, Except For Hx Cardiac Problems: No Hx Cancer: No Hx Gastrointestinal Problems: No Hx Neurological Problems: No Review of Systems All Other Systems: negative except mentioned in HPI Physical Exam Vital Signs Date Time Temp Pulse Resp B/P (MAP) Pulse Ox O2 Delivery O2 Flow Rate FiO2 08/21/19 16:47 98.1 98 18 121/78 (92) 98 Room Air Sp02 EP Interpretation: reviewed, normal General Appearance: no apparent distress, alert, GCS 15, non-toxic Head: normocephalic, atraumatic Eyes: bilateral eye normal inspection, bilateral eye PERRL ENT: hearing grossly normal, normal pharynx, no angioedema, normal voice Neck: full range of motion, supple/symm/no masses Respiratory: chest non-tender, lungs clear, normal breath sounds, no rhonchi, no retraction, no wheezing Cardiovascular #1: regular rate, rhythm, no edema, no murmur, normal capillary refill Cardiovascular #2: 2+ femoral (R), 2+ femoral (L), 2+ dorsalis pedis (R), 2+ dorsalis pedis (L) Gastrointestinal: normal inspection, normal bowel sounds, non tender, soft Rectal: deferred Musculoskeletal: back normal, normal range of motion, no calf tenderness, pelvis stable, gait/station normal, non-tender Neurologic: alert, motor strength/tone normal, oriented x3, sensory intact, responsive, speech normal Psychiatric: judgement/insight normal, memory normal, mood/affect normal, no suicidal/homicidal ideation Skin: no rash, other - LLE dry, shiny sand paper skin Lymphatic: no adenopathy Medical Decision Making PA Attestation All my diagnosis and treatment plans were reviewed ad discussed with my supervising physician Dr. Diana Diagnostic Impression: Primary Impression: Superficial occlusion of femoral artery ER Course 59-year-old male with history of chronic tobacco smoke, right lower extremity DVT x1 year, ambulating to the ER complaining of heaviness and numbness in the left lower extremity. Patient reports the last time that he had the DVT in the right lower extremity he felt very similar to what he is feeling in his left lower extremity today. Denies recent travel, lower extremity surgery, history of cancer. Patient is a heavy tobacco smoker. Reports the last year he had a DVT, was on Coumadin and aspirin however Coumadin was recently stopped by his vascular specialist. Patient also is noncompliant with taking aspirin on daily basis. Patient complains of numbness in the bottom of his left foot that is intermittent. Complains of a 10 out of 10 pain in the left lower extremity. Denies any recent fall or injury. both extremities have 2+ DP pulses, not cool to touch, not erythematous, no calf tenderness noted. Patient denies chest pain , shortness of breath, palpitation, pleuritic chest pain, abdominal pain, nausea vomiting. Has not taken medication for symptom relief. Ddx considered but are not limited to : Lower extremity arterial occlusion, cellulitis, DVT, PE, Vital signs: are WNL, pt. 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 Discharge: Patient stable at this time to be discharged and follow-up with vascular surgery as an outpatient, patient has chronic superficial femoral artery occlusion and does not require any hospitalization at this time. Patient stable at time of discharge. CT/MRI/US Diagnostic Results CT/MRI/US Diagnostic Results #1: Imaging Test Ordered: venous duplex LLE Impression no DVT CT/MRI/US Diagnostic Results #2: Imaging Test Ordered: arterial duplex LLE Impression Impression: -1-vessel arterial runoff (anterior tibial artery) into the left foot with monophasic waveforms, representing sluggish flow and decreased velocities. -Left mid and distal SFA complete occlusion likely chronic given reconstitution of popliteal artery. -Left popliteal artery patent due to reconstitution from collateral flow. - Occluded dorsalis pedis artery and posterior tibial artery. - Recommend vascular surgery consultation and nonemergent CTA abdomen and pelvis with runoff. Last Vital Signs Date Time Temp Pulse Resp B/P (MAP) Pulse Ox O2 Delivery O2 Flow Rate FiO2 08/21/19 16:47 98.1 98 18 121/78 (92) 98 Room Air Disposition: HOME, SELF-CARE Condition: Stable Referrals: NON PHYSICIAN (PCP) Patient Instructions: Peripheral Edema Additional Instructions: Follow-up with your vascular surgeon regarding the arterial occlusion, it needs to be surgically unclogged and possible stent placement. At this time you need to stop smoking tobacco. Nuvia Vieyra Aug 21, 2019 19:02
[2019-08-21 19:10] LABS: BASOPHILS % (AUTO) 0.9 % (0.0-2.0); EOSINOPHILS % (AUTO) 1.7 % (0.0-3.0); HEMATOCRIT 41.7 % (42.0-52.0); HEMOGLOBIN 13.5 G/DL (14.2-18.0); LYMPHOCYTES % (AUTO) 43.1 % (20.0-45.0); MEAN CORPUSCULAR VOLUME 91 FL (80-99); MONOCYTES % (AUTO) 8.5 % (1.0-10.0); NEUTROPHILS % (AUTO) 45.8 % (45.0-75.0); PLATELET COUNT 210 K/UL (150-450); RED BLOOD COUNT 4.56 M/UL (4.70-6.10); RED CELL DISTRIBUTION WIDTH 14.8 % (11.6-14.8)
[2019-08-21 19:19] LABS: ANION GAP 7 mmol/L (5-15); BLOOD UREA NITROGEN 15 mg/dL (7-18); CARBON DIOXIDE 26 MMOL/L (21-32); CHLORIDE 105 MMOL/L (98-107); CREATININE 1.1 MG/DL (0.55-1.30); SODIUM 138 MMOL/L (136-145)
[2019-08-21 19:24] LABS: ALANINE AMINOTRANSFERASE 24 U/L (12-78); ALBUMIN 3.3 G/DL (3.4-5.0); ALBUMIN/GLOBULIN RATIO 0.6 (1.0-2.7); ALKALINE PHOSPHATASE 105 U/L (46-116); ASPARTATE AMINO TRANSFERASE 13 U/L (15-37); BILIRUBIN,TOTAL 0.2 MG/DL (0.2-1.0)
[2019-08-21 19:30] LABS: INR 2.5 (0.9-1.1)
[2019-08-21] MEDS ORDERED: Omnipaque-300 100ml vial INJ PRN (20:00)
[2019-08-21] MEDS ORDERED: Omnipaue 350mg/ml 100ml vial INJ PRN ×2 (20:00)
--- NOTE | 2019-08-21 20:13 | Diagnostic Imaging Report ---
Indication: Left leg pain Technique: Grayscale and duplex images of the left lower extremity veins Comparison: none Findings: On the left, grayscale and duplex images demonstrate no evidence of intraluminal thrombus. Normal phasic Doppler waveforms demonstrating normal augmentation response. No evidence of valvular insufficiency. Normal compressibility Impression: Negative for evidence of left lower extremity deep venous thrombosis
--- NOTE | 2019-08-21 20:30 | Diagnostic Imaging Report ---
Indication: Left leg pain Technique: Patient duplex images of the left lower extremity arteries Comparison: none Findings: Grayscale and duplex images demonstrate patency of the left common femoral artery, with biphasic waveform demonstrated. They demonstrate absence of flow within the superficial femoral artery. There is evidence of reconstitution of the popliteal artery, which demonstrates a dampened monophasic waveform. Flow is also demonstrated within the anterior artery. Only portions of the posterior tibial artery are visible. No flow is demonstrated within the dorsalis pedis artery. No definite flow seen within the peroneal artery. Impression: Findings consistent with occlusion of the left superficial femoral artery. There is reconstitution of the popliteal artery. Likely segmental occlusive disease of the left posterior tibial artery. Patent anterior tibial artery but no flow demonstrated within the dorsalis pedis artery. Nonvisualized peroneal artery This agrees with the preliminary interpretation provided overnight by [facility].
[2019-08-21 20:54] VITALS: BP 135/96
--- NOTE | 2019-08-21 22:13 | Diagnostic Imaging Report ---
INDICATION: Intravenous and numbness in the left lower extremity, pain, history of heavy tobacco use TECHNIQUE: IV administration nonionic contrast. Arterial phase spiral acquisitions obtained through the abdomen, pelvis, and bilateral lower extremities. Multiplanar and 3-D reconstructions were generated. Total dose length product 1868 mGycm. CTDIvol(s) 29, 89, 10, 3 mGy. Radiation dose was minimized using automated exposure control COMPARISON: none. Reference made to arterial duplex scan of earlier the same day FINDINGS Abdominal aorta: There is minimal calcified atherosclerotic plaquing of the abdominal aorta. There is generalized mural thickening. No significant stenosis demonstrated. Patent nonstenotic celiac axis with normal branching anatomy. Patent nonstenotic superior mesenteric artery and proximal branches. Patent nonstenotic inferior mesenteric artery. Single renal arteries bilaterally. No evidence of dissection or aneurysm Right lower extremity: Patent nonstenotic common iliac, external iliac arteries. Apparent origin occlusion of the internal iliac artery with reconstitution of the distal branches. Patent nonstenotic common and profunda femoral arteries. There is mild atherosclerotic disease of the origin of the superficial femoral artery which does not result in any significant narrowing. Otherwise patent nonstenotic superficial femoral artery. The popliteal artery is unremarkable. Patent, somewhat diffusely small caliber but nonstenotic posterior tibial artery proximally. This appears to occlude at or just above the level of the ankle. The anterior tibial artery is patent, nonstenotic, gives off a patent dorsalis pedis artery. There is apparent origin occlusion of peroneal artery. There is suggestion of a very slight degree of distal reconstitution of this vessel, however. Left lower extremity: Patent nonstenotic, and, external, internal iliac arteries. Patent nonstenotic common femoral and profunda femoral arteries. The superficial femoral artery occludes at its origin of the profunda femoris artery is patent and nonstenotic. Collaterals reconstitute the popliteal artery [id number]. It is then normal in caliber. The proximal anterior tibial artery is patent but it occludes shortly beyond its origin. No flow is seen within the dorsalis pedis artery. The tibioperoneal trunk occludes at its origin. There is distal reconstitution of a very small caliber peroneal artery. The posterior tibial artery is occluded at its origin. It reconstitutes in the mid to distal leg and forms a patent plantar vessel. Nonvascular: The liver, gallbladder, bile ducts, pancreas, spleen, adrenals, left kidney are unremarkable. The right kidney demonstrates a 1 cm interpolar region cyst. No retroperitoneal or mesenteric mass or adenopathy. No pelvic mass or adenopathy. There is evidence of prior anterior lower lumbar spine fusion surgery. No evidence of colonic diverticulosis or diverticulitis. The appendix is normal. No small bowel distention. No free or loculated intraperitoneal gas or fluid is evident. The distal esophagus, stomach, duodenum are unremarkable. Included lung bases demonstrate some streaky opacity within the right middle lobe, likely infiltrate. 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 There is evidence of distal reconstitution of the posterior tibial and peroneal arteries No evidence of significant suprageniculate stenosis or occlusion on the right. There is evidence of distal occlusion of the posterior tibial artery, proximal occlusion with reconstitution of the peroneal artery .There is also origin occlusion of the right internal iliac artery Right middle lobe streaky opacity, likely representing infiltrate Other findings as noted, including small right renal cyst, evidence of prior lumbar spine fusion surgery This agrees with the preliminary interpretation provided overnight by [facility]. The CT scanner at [facility] is accredited by the [employer] and the scans are performed using protocols designed to limit radiation exposure to as low as reasonably achievable to attain images of sufficient resolution adequate for diagnostic evaluation.
== END 2019-08-21 21:03 | disposition home or self-care (01) ==
LOC: EMR 17:29 → CANBEDREQ 20:43 → EMR 21:03
DX: I77.1 Stricture of artery (principal); Z86.718 Personal history of other venous thrombosis and embolism; F17.200 Nicotine dependence, unspecified, uncomplicated
CPT/HCPCS: 36415; 75635; 80053; 85025; 85610; 85730; 93926; 93971; 99284; Q9967